=== PATIENT | male | born 1985 | race Caucasian/White ===

== ENCOUNTER 2019-06-01 21:28 | Emergency (ER) | payer OTHER ==
[2019-06-01] MEDS ORDERED: 0.9 % SODIUM CHLORIDE 1,000 ML BAG IV ONE (21:34)
[2019-06-01] MEDS ORDERED: ONDANSETRON HCL IV 4 MG/2 ML VIAL IVP ONE (21:34)
--- NOTE | 2019-06-01 21:36 | Emergency Department Record ---
History of Present Illness - General Stated Complaint: OVERDOSE Time Seen by Provider: 06/01/19 21:30 Source: Patient, Family, EMS Mode of Arrival: Ambulatory Limitations: No limitations - History of Present Illness Initial Comments: 33 yo male presents after overdose on heroin. He admits to using in the bathroom of his parents home. He was found by his family in bathroom in a state that appeared to be not breathing. Bystanders did CPR in response to this. He woke up spontaneously with this. No Narcan was required or given. EMS was called. Per EMS the patient was alert on his feet upon their arrival. At no time did he require Narcan or other supportive treatment. He arrives alert and oriented fully without complaints. The patient states he is on Suboxone but has not had any for 2 days. PCP is in [facility]. He has been using on and off for several years. He admits to recreational marijuana. He denies co- ingestants. He states he has been on and off heroin for several years. He was asymptomatic prior to going into the bathroom at home to shoot up. MD Complaint: Accidental overdose -: Minutes(s) - Tariq Coma Scale Eye Response: (4) Open spontaneously Motor Response: (6) Obeys commands Verbal Response: (5) Oriented [place] Total: 15 - Detail Intent: Other (Recreational use) How Overdose Was Discovered: Called family/friend Context: Accidental Overdose: Wanted to get high - Related Data Home Medications Medication Instructions Recorded Confirmed Last Taken Buprenorphine/Naloxone 8Mg/2Mg 1 each PO DAILY 06/01/19 06/01/19 05/31/19 [Buprenorp-Nalox 8-2 mg Sl Film] Allergies Allergy/AdvReac Type Severity Reaction Status Date / Time No Known Drug Allergies Allergy Verified 02/29/16 21:44 Review of Systems Constitutional: Denies: Chills, Fever, Malaise, Weakness Eyes: Denies: Eye discharge ENT: Denies: Congestion, Throat pain Respiratory: Denies: Cough, Dyspnea, Hemoptysis, Stridor, Wheezes Cardiovascular: Reports: Syncope. Denies: Chest pain, Edema, Palpitations Endocrine: Denies: Fatigue, Polydipsia, Polyuria Gastrointestinal: Reports: Nausea, Vomiting. Denies: Abdominal pain, Diarrhea Genitourinary: Denies: Dysuria, Frequency, Hematuria Musculoskeletal: Denies: Arthralgia, Back pain, Neck pain Skin: Denies: Bruising, Change in color, Rash Neurological: Denies: Numbness, Weakness Psychiatric: Denies: Anxiety Hematological/Lymphatic: Denies: Easy bleeding, Easy bruising Past Medical History - SOCIAL HISTORY Smoking Status: Current every day smoker Drug Use: None - RESPIRATORY Hx Respiratory Disorders: No - CARDIOVASCULAR Hx Cardio Disorders: No - NEURO Hx Neuro Disorders: No - GI Hx GI Disorders: No - Hx Genitourinary Disorders: No - ENDOCRINE Hx Endocrine Disorders: No - MUSCULOSKELETAL Hx Musculoskeletal Disorders: No - PSYCH Hx Psych Problems: No Physical Exam - General General Appearance: Alert, Oriented x3, Cooperative, No acute distress, Other (Moved seft off the gurney and ambulated to the ED bed without assistance) Limitations: No limitations - Head Head exam: Atraumatic, Normocephalic, Normal inspection Head exam detail: negative: Abrasion, Contusion, Neely's sign, General tenderness, Hematoma, Laceration - Eye Eye exam: Normal appearance, PERRL. negative: Conjunctival injection, EOMI, Scleral icterus - ENT ENT exam: Normal exam, Mucous membranes moist Ear exam: Normal external inspection Nasal Exam: Normal inspection Mouth exam: Normal external inspection Teeth exam: Normal inspection Throat exam: Normal inspection - Neck Neck exam: Normal inspection, Full ROM. negative: Lymphadenopathy, Tenderness - Respiratory Respiratory exam: Normal lung sounds bilaterally. negative: Accessory muscle use, Decreased breath sounds, Respiratory distress, Rhonchi, Stridor, Wheezes - Cardiovascular Cardiovascular Exam: Regular rate, Normal rhythm, Normal heart sounds Peripheral Pulses: 2+: Radial (R), Radial (L) - GI/Abdominal GI/Abdominal exam: Soft - Rectal Rectal exam: Deferred - exam: Deferred - Extremities Extremities exam: Normal inspection. negative: Calf tenderness, Pedal edema - Back Back exam: Denies: CVA tenderness (R), CVA tenderness (L) - Neurological Neurological exam: Alert, Normal gait, Oriented X3. negative: Abnormal gait, Altered, Motor sensory deficit - Psychiatric Psychiatric exam: Normal affect, Normal mood. negative: Agitated, Anxious - Skin Skin exam: Dry, Intact, Normal color, Warm Course - Reevaluation(s) Reevaluation #1: 06/01/19 21:40 The patient denies any pain. He does not think he hit his head. He is alert. No shortness of breath. Normal response to questions and he provides his full history and past history without limitation. He has not had Suboxone for 2 days. He gets the Suboxone from his family medicine clinic in [place]. He is visiting his parents. He currently has some nausea otherwise no complaints. On arrival he is fully oriented. He is cooperative. 06/01/19 21:57 EKG #1: 21:50 Rate: 61 Rhythm: sinus [place]: normal Intervals: normal ST segments: normal Normal EKG 06/01/19 22:50 The patient has remained awake and alert. No confusion. He has had and continues to have full knowledge of his situation without impairment. He is requesting discharge. His vitals are stable. He is competent. He has decision making capacity that is not impaired. He was not given Narcan. He has not demonstrated any signs that he will deteriorate without him doing additional drugs upon leaving. He is completely and fully aware that if he uses drugs again soon or in this fashion he is putting his life at risk. He is capable of making his own informed decisions at this time and his decision to for discharge. He has demonstrated stability for discharge. He ambulates without difficulty. His thoughts and speech are clear. No signs of impairment currently. I strongly encouraged him to call his PCP and to use his Suboxone as it was intended and as instructed. I offered Rx for Narcan but he states he has prescriptions for Narcan at home. He is staying with his parents tonight and not alone. Given his stability, no signs of deterioration, no Narcan required to return to baseline (meaning no reason to strongly suspect deterioration) I do not see a reason to sign him out AMA. I did offer to have him stay until morning in the ED if he thought he would just use immediately when discharged. He declined the offer. He was again told that future use will likely lead to his prior to DC. Medical Decision Making - Lab Data Result diagrams: 06/01/19 21:35 06/01/19 21:35 Disposition Disposition: Discharge Clinical Impression: Heroin abuse Disposition: Home, Self-Care Condition: (2) Stable Instructions: Narcotic Abuse (ED) Additional Instructions: Do not use heroin Use your Suboxone as directed You put yourself at risk of every time you use drugs. Forms: Patient Portal Access Time of Disposition: 23:05 Quality - Quality Measures Quality Measures: N/A - Blood Pressure Screening Does Patient Have Any of the Following: No Blood Pressure Classification: Normal BP Reading Systolic Measurement: 111 Diastolic Measurement: 69 Screening for High Blood Pressure: < Normal BP, F/U Not Required > [[id number]]
[2019-06-01 21:43] LABS: ABSOLUTE NEUTROPHIL COUNT 3.56; BASO % 0.3 % (0-6); EOS % 1.9 % (0-6); GRAN % 57.4 % (47-80); HEMATOCRIT 41.6 % (42.0-52.0); LYMPH % 33.5 % (16-45); MEAN CELL VOLUME 94.8 fl (81-97); MEAN CORPUSCULAR HGB CONC 33.7 g/dl (32-36); MEAN PLATELET VOLUME 9.6 fl (7.4-10.4); MONO % 6.9 % (0-9); PLATELET COUNT 184 K/uL (130-400); RED BLOOD COUNT 4.39 M/uL (4.40-5.70); RED CELL DISTRIBUTION WIDTH 12.6 % (11.5-14.5); WHITE BLOOD COUNT W/O DIFF 6.2 K/uL (4.2-12.2)
[2019-06-01 21:44] LABS: MEAN CORPUSCULAR HEMOGLOBIN 31.8 pg (27-33)
[2019-06-01 21:58] LABS: BLOOD UREA NITROGEN 6 mg/dL (6-20); CREATININE 0.8 mg/dL (0.7-1.2); EST GLOMERULAR FILTRATION RATE > 60 mL/min
[2019-06-01 21:59] LABS: TOTAL PROTEIN 7.6 g/dL (6.6-8.7)
[2019-06-01 22:01] LABS: GLUCOSE,RANDOM 134 mg/dL (74-109)
[2019-06-01 22:03] LABS: ALT/SGPT 15 U/L (<41)
[2019-06-01 22:04] LABS: ALB/GLOB RATIO 1.7 (1.1-1.8); ALBUMIN 4.8 g/dL (4.0-5.0); ALKALINE PHOSPHATASE 73 U/L (40-129); AST/SGOT 20 U/L (10.0-50.0)
[2019-06-01] MEDS ORDERED: POTASSIUM CHLORIDE 20 MEQ TABLET PO ONE (22:50)
== END 2019-06-01 23:03 | disposition home or self-care (01) ==
LOC: ER 21:28
DX: T40.1X1A Poisoning by heroin, accidental (unintentional), initial encounter (principal); R11.0 Nausea; Y92.002 Bathroom of unspecified non-institutional (private) residence as the place of occurrence of the external cause; F17.210 Nicotine dependence, cigarettes, uncomplicated
CPT/HCPCS: 80053; 85025; 93005; 93010; 96361; 96374; 99285; J7030